=== PATIENT | female | born 1990 | race Caucasian/White ===

== ENCOUNTER 2024-04-13 20:29 | Emergency (ER) | payer MEDICAID ==
[~2024-04-13] VITALS: Ht 147.3 cm; Wt 43.2 kg
[2024-04-13 20:34] VITALS: TEMP 97.9
[2024-04-13] MEDS ORDERED: dexAMETHasone 10 MG/ML VIAL PO ONE (21:45)
[2024-04-13 22:13] VITALS: BP 139/104; PULSE 71
== END 2024-04-13 22:15 | disposition home or self-care (01) ==
LOC: COL.ER 20:29
DX: J39.2 Other diseases of pharynx (principal)
CPT/HCPCS: J1100